=== PATIENT | female | born 1995 | race Caucasian/White ===

== ENCOUNTER 2023-12-09 07:39 | Day surgery (SDC) | payer MEDICAID ==
[~2023-12-09] VITALS: Ht 165.1 cm; Wt 79.5 kg
[2023-12-09] VITALS (11 sets, daily range): BP systolic 101–113; BP diastolic 60–77; PULSE 59–84; TEMP 97
[2023-12-09] MEDS ORDERED: Morphine 4 MG/ML VIAL IV PRN (08:00)
[2023-12-09] MEDS ORDERED: Ondansetron 4 MG/2 ML VIAL IV PRN ×3 (08:00→10:45)
[2023-12-09] MEDS ORDERED: LR 1,000 ML IV SCH (08:00)
[2023-12-09] MEDS ORDERED: EFFEXOR XR37.5 MG/CA PO (08:25)
[2023-12-09] MEDS ORDERED: PROAIR HFA0.09 MG/AC IH (08:26)
[2023-12-09] MEDS ORDERED: FLAGYL 250250 MG/TAB PO (08:28)
--- NOTE | 2023-12-09 08:29 | NUR ---
Pt arrived in room. A&Ox4. VSS. S1S2. Clear lungs. ABD round, firm, tender to touch in RLQ. Palpable pulses in all extremities with 5/5 strength. IV in L AC is patent. Oriented Pt and family to room. Pt prepped for surgery. BALBIR Cortez transported Pt to OR via bed.
[2023-12-09] MEDS ORDERED: Midazolam 2 MG/2 ML VIAL ONE (08:41)
[2023-12-09] MEDS ORDERED: fentaNYL 50 MCG/ML 2 ML VIAL ONE ×2 (08:41→10:11)
[2023-12-09] MEDS ORDERED: Scopolamine 1 MG Delivered 3-Day PATCH TD SCH (08:45)
[2023-12-09] MEDS ORDERED: Ketorolac 30 MG/ML VIAL ONE (10:18)
[2023-12-09] MEDS ORDERED: NS 10 ML IV ONE (10:18)
[2023-12-09] MEDS ORDERED: Glycopyrrolate 0.2 MG/ML 1 ML VIAL ONE (10:18)
[2023-12-09] MEDS ORDERED: dexAMETHasone 10 MG/ML VIAL ONE (10:18)
[2023-12-09] MEDS ORDERED: Ondansetron 4 MG/2 ML VIAL ONE (10:18)
[2023-12-09] MEDS ORDERED: Topical Skin Adhesive 1 EACH (1 ML) TOP ONE (10:20)
[2023-12-09] MEDS ORDERED: hydrALAZINE 20 MG/ML 1 ML VIAL IV PRN (10:30)
[2023-12-09] MEDS ORDERED: fentaNYL 50 MCG/ML 1 ML SYRINGE/VIAL [PACU/SDC ONLY] IV PRN (10:30)
[2023-12-09] MEDS ORDERED: HYDROmorphone 1 MG/1 ML SYRINGE [PACU/SDC ONLY] IV PRN (10:30)
--- NOTE | 2023-12-09 10:40 | NUR ---
Pt back from PACU. Pt A&Ox4. Pt is drowsy but easily wakes when spoken to. VSS. S1S2. Clear lungs. x3 lap sites WA, skin glue. IV in L AC with LR. Pt denies n/v, headache, dizziness, pain. Call light in reach.
[2023-12-09] MEDS ORDERED: Acetaminophen 325 MG TAB PO PRN (10:45)
[2023-12-09] MEDS ORDERED: Ibuprofen 600 MG TAB PO PRN (10:45)
[2023-12-09] MEDS ORDERED: NORCO 325 MG-51 TAB PO (10:47)
--- NOTE | 2023-12-09 12:53 | NUR ---
Pt tolerating fluids and food.
--- NOTE | 2023-12-09 14:09 | NUR ---
SW met with patient and significant other to complete initial assessment for discharge planning. Patient verified that she lives in [place] with her significant other Doron Krause ([phone]) and their two young children. Patient sees Dr. Claribel Guardado as her PCP and uses [facility] pharmacy. Patient denies using any DME and denies having a DPOA completed. Patient declined to complete DPOA at this time. Patient works at [employer] and plans to return home at discharge. Discharge plan: Home
--- NOTE | 2023-12-09 14:47 | NUR ---
Pt and family educated on D/C instructions and information. Answered Pt questions. D/C'ed Pt's INT from L AC. Pressure bandage applied. No further needs. Pt walked out to vehicle with ERMELINDA Hester.
== END 2023-12-09 14:48 | disposition home or self-care (01) ==
LOC: SDCO 07:39 → SURG 07:39 → SDCO 14:48 → SURG 14:48 → EDSTATUS 16:39
DX: K35.80 Unspecified acute appendicitis (principal); F17.290 Nicotine dependence, other tobacco product, uncomplicated
CPT/HCPCS: G0378; G0379; J0690; J1100; J1885; J2250; J2405; J2704; J3010; J7120